=== PATIENT | male | born 1940 | race Caucasian/White ===

== ENCOUNTER → 2016-10-30 | Outpatient (CLI) | payer OTHER | LOC: CT 10-29 11:00 | DX: J32.0 Chronic maxillary sinusitis (principal) | CPT/HCPCS: 70486 ==

== ENCOUNTER 2020-08-10 19:46 | Emergency (ER) | payer OTHER ==
[2020-08-10 20:29] LABS: HEMOGLOBIN 9.1 gm/dl (14.0-17.5); RED BLOOD COUNT 3.96 M/UL (4.20-5.50); WHITE BLOOD COUNT 13.8 K/UL (4.5-11.0)
[2020-08-10 20:52] LABS: BUN/CREATININE RATIO 20 (0-10)
[2020-08-11] MEDS ORDERED: IBUPROFEN600 MG PO (00:12)
== END 2020-08-11 00:43 | disposition home or self-care (01) ==
LOC: ER1 19:46
PROVIDERS: Internal Medicine
DX: J18.9 Pneumonia, unspecified organism (principal); M79.89 Other specified soft tissue disorders; E78.5 Hyperlipidemia, unspecified; Z86.73 Personal history of transient ischemic attack (TIA), and cerebral infarction without residual deficits; Z20.822 Contact with and (suspected) exposure to COVID-19
CPT/HCPCS: 0240U; 71046; 80053; 81001; 83880; 84484; 85025; 93005; 94640; 94664; 94760; 99285